=== PATIENT | female | born 1980 | race Asian ===

== ENCOUNTER 2024-07-06 13:58 | Outpatient (REF) | payer SELFPAY | END 2024-07-06 13:59 | disposition home or self-care (01) | LOC: LBN 13:58 | PROVIDERS: Visit Provider Physician Assistant | DX: N39.0 Urinary tract infection, site not specified (principal); B96.29 Other Escherichia coli [E. coli] as the cause of diseases classified elsewhere | CPT/HCPCS: 87077; 87086; 87186 ==